=== PATIENT | male | born 1965 | race Caucasian/White ===

== ENCOUNTER 2018-12-05 12:14 | Inpatient (IN) | payer OTHER ==
[2018-12-05] MEDS ORDERED: Aspirin Chewable 81 MG TAB ONE (12:48)
[2018-12-05] MEDS ORDERED: Nitroglycerin 0.4 MG TAB 1 EACH ONE (12:48)
[2018-12-05 12:51] LABS: #Basophils 0.1 thou/uL (0.0-0.2); #Lymphocytes 2.4 thou/uL (1.20-3.40); #Monocytes 0.6 thou/uL (0.11-0.59); #Neutrophils 3.5 thou/uL (1.40-6.50); %Basophils 1.1 % (0.0-1.0); %Eosinophils 0.3 % (0.0-10.0); %Lymphocytes 36.9 % (21.0-51.0); %Neutrophils 52.7 % (42.0-75.0); Hemoglobin 15.4 g/dL (14.0-18.0); Mean Corpuscular HGB CONC 34.8 g/dL (32.0-36.0); Mean Corpuscular Hemoglobin 33.1 pg (27.0-31.0); Mean Corpuscular Volume 95.3 fL (78.0-98.0); Mean Platelet Volume 7.9 fL (7.4-10.4); Platelet Count 249 thou/uL (130-400); Red Blood Cell (RBC) Count 4.65 mill/uL (4.70-6.10); White Blood Cell (WBC) Count 6.6 thou/uL (4.8-10.8)
[2018-12-05 13:26] LABS: ALT (SGPT) 38 U/L (8-55); AST (SGOT) 25 U/L (5-34); Alkaline Phosphatase 101 U/L (40-150); Anion Gap 17 mmol/L (10-20); BUN (Urea Nitrogen) 8 mg/dL (8.4-25.7); Bilirubin, Total 0.7 mg/dL (0.2-1.2); CK (CPK) 158 U/L (30-200); Calc. Creatinine Clearance 0 mL/min (70-130); Calcium 10.4 mg/dL (7.8-10.44); Carbon Dioxide 26 mmol/L (22-29); Chloride 105 mmol/L (98-107); Estimated GFR-MDRD 77; Globulin 2.9 g/dL (2.4-3.5); Glucose 115 mg/dL (70-105); Lipase 18 U/L (8-78); Potassium 3.7 mmol/L (3.5-5.1); Protein, Total 7.9 g/dL (6.0-8.3); Sodium 144 mmol/L (136-145)
--- NOTE | 2018-12-05 13:31 | RAD ---
CHEST ONE VIEW: 12/05/18 HISTORY: Chest pain. COMPARISON: 11/22/10. FINDINGS: Cardiac silhouette is magnified by projection. Pulmonary vasculature is unremarkable. Mediastinum is midline with postoperative changes and aortic calcification. No confluent air space consolidation or evidence of pneumothorax. storekeeper engineering leads overlie the chest. IMPRESSION: Atherosclerosis. No active cardiopulmonary abnormalities are otherwise demonstrated. POS: TPC
[2018-12-05] MEDS ORDERED: Ondansetron PF 4 MG/2 ML Vial ONE (13:38)
[2018-12-05] MEDS ORDERED: Morphine 4 MG/ML VIAL ONE (13:38)
[2018-12-05] MEDS ORDERED: Nitroglycerin 2% Ointment 1 INCH/1 GM Packet ONE (15:57)
[2018-12-05] MEDS ORDERED: Morphine 4 MG/ML VIAL SLOW IVP PRN (15:57)
[2018-12-05] MEDS ORDERED: Morphine 2 MG/ML SYRINGE ONE ×2 (15:57→16:32)
[2018-12-05 16:05] LABS: Troponin I 0.169 ng/mL (< 0.028)
[2018-12-05] MEDS ORDERED: Ondansetron ODT 4 MG TAB PO PRN (16:17)
[2018-12-05] MEDS ORDERED: Labetalol HCl 100 MG/20 ML VIAL SLOW IVP PRN (16:17)
[2018-12-05] MEDS ORDERED: diphenhydrAMINE 25 MG CAP PO PRN (16:17)
[2018-12-05] MEDS ORDERED: Ondansetron PF 4 MG/2 ML Vial IVP PRN (16:17)
[2018-12-05] MEDS ORDERED: Acetaminophen 500 MG TAB PO PRN (16:17)
[2018-12-05] MEDS ORDERED: Morphine 4 MG/ML VIAL SLOW IVP SCH (16:30)
[2018-12-05] MEDS ORDERED: Enoxaparin Sodium 100 MG/ML SYRINGE SC SCH (16:30)
[2018-12-05] MEDS ORDERED: Enoxaparin Sodium 100 MG/ML SYRINGE ONE (16:33)
[2018-12-05] MEDS ORDERED: Lorazepam 0.5 MG TAB PO PRN (16:42)
[2018-12-05] MEDS: Nitroglycerin 0.4 MG TAB (25 Tab Bottle) SL PRN ×4 (17:14→19:55)
--- NOTE | 2018-12-05 17:24 | HP ---
CHIEF COMPLAINT: Chest pain. HISTORY OF PRESENT ILLNESS: Mr. Connolly is a pleasant 53-year-old male with past medical history significant for triple-vessel coronary artery disease, status post 4-vessel CABG approximately 9 years ago; hypertension; hyperlipidemia; who presented to the hospital after suffering an episode of chest pain while he was at work. 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 He had finished laying some asphalt and was about to have lunch when his chest pain began. He describes the chest pain as a "stabbing." He had some associated shortness of breath, dizziness, and nausea. The pain was nonradiating. He also experienced what he calls "shaking." He presented to the emergency department for further workup and treatment. On arrival to the emergency department, initial EKG shows some ST depression in the inferolateral leads. His initial troponin was negative, subsequent troponin was 0.169. He has been given aspirin, nitroglycerin, morphine, and states that his chest pain has improved. He was significantly hypertensive on arrival as well with blood pressure systolic 204, but this has also trended down. The patient states that he does not follow up with Cardiology regularly, and cannot recall who his primary yarder boss is at this point. He does say that he had a stress test about a year ago at this facility, however, I cannot find a record of this in the current records. He states his bypass surgery was performed here by Dr. Martinez. REVIEW OF SYSTEMS: A 12-point review of systems performed and is negative except that stated above. PAST MEDICAL HISTORY: Significant for triple-vessel coronary artery disease as outlined above, hypertension, hyperlipidemia. PAST SURGICAL HISTORY: 4-vessel CABG 9 years ago, prior arthroscopic knee repair, appendectomy. SOCIAL HISTORY: The patient states that he drinks 3 to 4 beers per day. He is a former smoker, but quit 8 years ago. He currently works for the [employer]. FAMILY HISTORY: Positive for coronary artery disease in his mother. ALLERGIES: NO KNOWN DRUG ALLERGIES. HOME MEDICATIONS: 1. Aspirin 325 mg daily. 2. Simvastatin 20 mg p.o. at bedtime. 3. Lisinopril 20 mg daily. PHYSICAL EXAMINATION: VITAL SIGNS: Blood pressure 161/90, pulse 57, respirations 15, O2 saturation is 97% on room air. GENERAL: This is a male, resting in bed, in no acute distress. He does appear anxious. HEENT: Head is atraumatic and normocephalic. Mucous membranes are moist. CV: S1 and S2. Regular rate and rhythm. No appreciable murmurs, rubs, or gallops. LUNGS: Regular respiratory rate and pattern. Clear to auscultation bilaterally. ABDOMEN: Positive bowel sounds. Soft, nontender. EXTREMITIES: No edema. SKIN: Warm and dry. NEUROLOGIC: Cranial nerves 2 through 12 are grossly intact. The patient is nonfocal. LABORATORY DATA: White blood cell count 6.6, hemoglobin 15.4, hematocrit 44.3, platelet count is 249. Sodium 144, potassium 3.7, anion gap is 17, creatinine 1.01, glucose 115, calcium 10.4. Troponin negative and 0.169 respectively. Lipase negative at 18. ASSESSMENT: 1. NSTEMI 2. Coronary artery disease, status post 4-vessel coronary artery bypass graft 9 years ago. 3. Uncontrolled hypertension. 4. Hyperlipidemia. PLAN: At this time, we will treat the patient medically with aspirin, Lovenox, statin, beta-ankit, and VENU inhibitor. We will continue nitroglycerin paste as well as sublingual nitroglycerin and morphine p.r.n. Lipid panel in the morning. We will consult Cardiology. I have explained the likelihood of left heart catheterization as well as some of the risks and benefits if Cardiology proceeds. The patient is currently resting comfortably. Further recommendations based on hospital course. Job ID: [id number] MTDD
[2018-12-05 17:54] VITALS: BMI 28.6
[2018-12-05 19:08] LABS: Troponin I 1.729 ng/mL (< 0.028)
[2018-12-05] MEDS: Metoprolol Tartrate 25 MG TAB PO SCH (20:52)
[2018-12-05] MEDS: Simvastatin 20 MG TAB PO SCH (20:54)
[2018-12-05] MEDS: Famotidine/PF 20 mg/2ml Vial SLOW IVP SCH (20:56)
[2018-12-05] MEDS ORDERED: Morphine 2 MG/ML SYRINGE SLOW IVP PRN (22:08)
[2018-12-05] MEDS: Nitroglycerin 2% Ointment 1 INCH/1 GM Packet TOP SCH (23:45)
[2018-12-06] MEDS: Sodium Chloride 0.9% 1,000 ML IV SCH ×2 (04:08→16:22)
[2018-12-06 05:11] LABS: Anion Gap 12 mmol/L (10-20); BUN (Urea Nitrogen) 10 mg/dL (8.4-25.7); Calc. Creatinine Clearance 144 mL/min (70-130); Calcium 8.6 mg/dL (7.8-10.44); Carbon Dioxide 24 mmol/L (22-29); Cardiac Risk 3.5 (Less than 4.5); Chloride 106 mmol/L (98-107); Cholesterol 139 mg/dl (< 200 Desired); Estimated GFR-MDRD Greater than 90; Glucose 97 mg/dL (70-105); HDL Cholesterol 40 mg/dL (>60 Neg Risk); LDL Cholesterol, Calculated 56 mg/dL; Potassium 3.4 mmol/L (3.5-5.1); Sodium 139 mmol/L (136-145); Triglycerides 213 mg/dL (Less than 150)
[2018-12-06] MEDS: Nitroglycerin 2% Ointment 1 INCH/1 GM Packet TOP SCH ×3 (06:00→21:05)
[2018-12-06 08:36] LABS: Troponin I 25.168 ng/mL (< 0.028)
[2018-12-06] MEDS ORDERED: Enoxaparin Sodium 100 MG/ML SYRINGE SC SCH (09:00)
[2018-12-06] MEDS ORDERED: Communication Order-Pharmacy FS SCH (09:15)
[2018-12-06] MEDS ORDERED: Lidocaine 1% (PF) 30 ML VIAL ONE (09:29)
[2018-12-06] MEDS: Aspirin 81 mg Enteric Coated Tablet PO SCH (09:32)
[2018-12-06] MEDS: Lisinopril 20 MG TAB PO SCH (09:32)
[2018-12-06] MEDS: Famotidine/PF 20 mg/2ml Vial SLOW IVP SCH ×2 (09:32→21:05)
[2018-12-06] MEDS: Metoprolol Tartrate 25 MG TAB PO SCH ×2 (09:36→21:03)
--- NOTE | 2018-12-06 10:59 | CON ---
DATE OF CONSULTATION: 12/06/2018 INDICATION FOR CONSULTATION: This is a 53-year-old gentleman, I saw many years ago. About 10 years ago, he underwent bypass surgery, four-vessel bypass to the left anterior descending with a CAMPBELL and then, three separate vein grafts to the PDA, posterior lateral branch of the right coronary and to the left circumflex. He has been doing relatively well, who was out yesterday working. He works doing road construction, went to his truck to sit down to get some water, then he developed sudden onset of chest pain. It did not resolve. He presented to the emergency room. His pain continued for almost 10 to 12 hours. This has finally been resolved. His pain is now resolved, but his cardiac enzymes are positive for myocardial infarction. Troponin I has gone up to 25. He is actually pain-free at this time, but given the fact, his enzymes continue to increase. In his history of coronary artery disease, he will best be served by undergoing a cardiac catheterization. We will plan for this morning in this patient, who now is relatively stable. PAST MEDICAL HISTORY: Significant for the coronary artery disease and four-vessel bypass, hypertension, and dyslipidemia. He has had arthroscopic knee surgery and appendectomy. For the reminder of his past medical history, refer the notes dictated by the nurse practitioner. SOCIAL HISTORY: Refer the notes dictated by the nurse practitioner. FAMILY HISTORY: Refer the notes dictated by the nurse practitioner. REVIEW OF SYSTEMS: Refer the notes dictated by the nurse practitioner. ALLERGIES: REFER THE NOTES DICTATED BY THE NURSE PRACTITIONER. MEDICATIONS: Refer the notes dictated by the nurse practitioner. PHYSICAL EXAMINATION: GENERAL: Reveals a well-developed, well-nourished woman, in no acute distress. VITAL SIGNS: Blood pressure 120/60, heart rate is in the 60s and is regular, respiratory rate 18, and O2 saturation 96%. HEENT: Shows the head to be normocephalic and atraumatic. Carotid pulses are present. I do not hear any significant bruits. CHEST: Clear to auscultation without any rales, rhonchi, or wheezing. CARDIOVASCULAR: Reveals a regular rate and rhythm. No significant murmurs, heaves, thrills, bruits, or rubs. ABDOMEN: Soft and nontender. Positive bowel sounds are present. EXTREMITIES: Showed no clubbing, cyanosis, or edema. Femoral pulses are present. NEUROLOGIC: The patient is fully intact without any gross focal motor deficits. LABORATORY DATA: As noted above, the troponin I has increased up to 25, originally on admission, the troponin I was less than 0.1, increased to 0.16 and 1.7, now is up to 25. His creatinine is 0.82 and potassium is 3.4. His hemoglobin is 15.4, WBC of 6.6, and platelet count of 249,000. PLAN: At this time, we will continue to as planned cardiac catheterization. I have discussed the procedure and risks with him for a cardiac catheterization to include bleeding, infection, possible myocardial infarction, CVA, renal insufficiency, allergic contrast reaction, and the possibility of . He understands and agrees to proceed. We will plan for cardiac catheterization this morning. Job ID: [id number]
[2018-12-06] MEDS ORDERED: TICAGRELOR 90 MG TABLET ONE (11:30)
[2018-12-06] MEDS ORDERED: Aggrastat 12.5 MG/250 ML 250 ML ONE (11:30)
[2018-12-06] MEDS ORDERED: Sodium Chloride 0.9% 200 ML IV PRN (12:16)
[2018-12-06] MEDS ORDERED: Acetaminophen/Codeine 30-300mg Tablet PO PRN ×2 (12:16)
[2018-12-06] MEDS ORDERED: Aggrastat 12.5 MG/250 ML 250 ML IVPB SCH (12:16)
[2018-12-06] MEDS ORDERED: Nitroglycerin 0.4 MG TAB (25 Tab Bottle) SL PRN (12:16)
[2018-12-06] MEDS ORDERED: Iopamidol 370 76% 100 ML VIAL ONE (15:09)
--- NOTE | 2018-12-06 17:31 | CON ---
DATE OF CONSULTATION: PRIMARY CARE DOCTOR: I believe the patient goes to the [facility] in [facility]. PRIMARY CUSTODIAL FOREMAN: Dr. Meme Lemons. REASON FOR CARDIOLOGY CONSULT: Chest pain and history of CABG x4 in 2009. HISTORY OF PRESENT ILLNESS: Mr. Connolly is a 53-year-old male with a significant history of coronary artery disease with status post CABG x4 in 2009, hypertension, hyperlipidemia, who presents to emergency department after he has heaviness and massive pain to the mediastinal area as like the basketball hit his chest yesterday around noontime associated with dizziness and shortness of breath and shakiness in the body. All the symptom improved except that the pain to the mediastinal area last until last night. At this moment during the initial Cardiology consult, the patient denied any chest pain, heaviness, tightness, or any other cardiac complaints at this moment. He worked for the [facility] and he work outside every day. He was very active at work without any cardiac complaints until yesterday and his troponins have shown the troponin up to 25.168 at this moment. The patient had a CABG x4 in 2009 with reverse SVG to OM, reverse SVG to PDA, CAMPBELL to LAD, and reverse SVG to PL branch and an LAD to D2 bifurcation, which was very small, heavily diseased artery and it should not be approached. A stress test done in August 2016 showed small size of scar in anterior wall and moderate size of scar in apical wall, but no evidence of reverse ischemia with EF 56%. PAST MEDICAL HISTORY: Hypertension, hyperlipidemia, and CAD. PAST SURGICAL HISTORY: 4-vessel CABG in 2009 and right knee repair and appendectomy in 2014. FAMILY HISTORY: No family history. The patient's mother has a medical history of CAD, hypertension, and pacemaker placement. The patient's father has a medical history of hypertension. SOCIAL HISTORY: He is . He lives with himself, but he has a good supportive neighbor. He drinks 3 to 4 beers per day and usually 12 to 18 beers the weekend several times per month. He is an ex-smoker. He quit in 2009. He does not do regular exercise, but he walks really active at work. REVIEW OF SYSTEMS: 12-point review of systems is negative unless otherwise mentioned in the HPI. The patient had a torn of the rotator cuff on the left shoulder, now he is going to see the physical therapist and possible steroid shot to do that side. ALLERGIES: THE PATIENT IS ALLERGIC TO BETA-POLLY, WHICH MAKES HIM FEEL THE PATIENT WEAK AND ABDOMEN UPSET. HOME MEDICATIONS: 1. Aspirin 325 mg once a day. 2. Simvastatin 20 mg once a day. 3. Lisinopril 20 mg once a day. 4. Multivitamin once a day. 5. CoQ10 of 100 mg once a day. PHYSICAL EXAMINATION: VITAL SIGNS: Blood pressure 120/60; heart rate 60, sinus rhythm; temperature 98.2, respiratory rate 18, O2 saturation 96% with room air. GENERAL: The patient is alert and oriented x4, not in acute distress. HEENT: Normocephalic, atraumatic. Eyes; extraocular muscle movement intact. ENT and mouth; oral and nasal mucosa moist without lesion. NECK: Supple. Normal range of motion. No JVD. RESPIRATORY: Clear to auscultate bilaterally. No wheezing, rales, or rhonchi noted. CARDIOVASCULAR: Regular rate and rhythm. Normal S1 and S2. There is no S3 or S4. No significant murmur, hives, or thrill noted. 2+ pulses in the bilateral upper and lower extremities. Carotid pulses are present without bruit or thrill noted. No edema in the lower extremities. ABDOMEN: Soft, nontender. No masses palpitated. Bowel sounds are present. SKIN: Warm and dry. No erythema, lesion, or rash noted. MUSCULOSKELETAL: The patient is able to move all extremities. PSYCHIATRIC: The patient's mood is appropriate. NEUROLOGIC: The patient is alert and oriented x4. Nonfocal. LABORATORY DATA: WBC 6.6, hemoglobin 15.4, hematocrit 44.3, platelets 249. Sodium 139, potassium 3.4, BUN 10, creatinine 0.82, glucose is 97, calcium 8.6, AST 25, ALT 38. Troponin highest at 25.168. Cholesterol 139, triglycerides 213, HDL 40, LDL 56. IMAGING STUDIES: Chest x-ray showed no acute cardiopulmonary process noted. ASSESSMENT AND PLAN: 1. Chest pain with elevated troponin. The patient has planned to undergo cardiac catheterization or if Dr. Lemons has already consulted this patient and planned to undergo cardiac catheterization today at 10:30 a.m. The patient denied any question or concern about procedure or risk of the procedure. 2. Hypertension. The patient's blood pressure is stable at this moment with current medication. 3. Hyperlipidemia. The patient's cholesterol level is very well controlled with simvastatin. Thank you very much for allowing the Cardiology Service to participate in the care of patient. We will follow along the patient's care team and make further recommendations as appropriate. Job ID: [id number]
[2018-12-06 18:08] LABS: Hemoglobin 13.8 g/dL (14.0-18.0); Platelet Count 197 thou/uL (130-400)
--- NOTE | 2018-12-06 21:03 | PDOC.HOSPP ---
- Subjective Subjective: Doing well post-cath. No further chest pain. - Objective Vital Signs & Weight: Vital Signs (12 hours) Temp Pulse Resp BP BP Pulse Ox 12/06/18 18:10 98.1 F 66 18 133/61 97 12/06/18 16:00 98.0 F 67 18 119/58 L 97 Weight Weight 218 lb 4.8 oz I&O: 12/05/18 12/06/18 12/07/18 06:59 06:59 06:59 Intake Total 240 1375 Balance 240 1375 Result Diagrams: 12/06/18 17:58 12/06/18 04:03 Hospitalist ROS - Medication Medications: Active Medications Generic Name Dose Route Start Last Admin Trade Name Freq PRN Reason Stop Dose Admin Aspirin 81 mg 12/06/18 09:00 12/06/18 09:32 Ecotrin PO Not Given DAILY THERESE Famotidine 20 mg 12/05/18 21:00 12/06/18 09:32 Pepcid SLOW IVP Not Given BID [facility] Sodium Chloride 1,000 mls @ 75 mls/hr 12/06/18 03:00 12/06/18 16:22 Normal Saline 0.9% IV 1,000 mls .[id number] THERESE Administration Lisinopril 20 mg 12/06/18 09:00 12/06/18 09:32 Zestril PO Not Given DAILY THERESE Metoprolol Tartrate 12.5 mg 12/05/18 21:00 12/06/18 09:36 Lopressor PO 12.5 mg BID THERESE Administration Nitroglycerin 0.5 inch 12/05/18 22:00 12/06/18 13:09 Nitro-Bid 2% Ointment TOP Not Given Q8HR THERESE Nitroglycerin 0.4 mg 12/05/18 16:17 12/05/18 19:55 Nitrostat SL 1 tab Q5MIN PRN Administration Chest Pain Simvastatin 20 mg 12/05/18 21:00 12/05/18 20:54 Zocor PO 20 mg HS THERESE Administration - Exam General Appearance: NAD, awake alert Neck: supple, symmetric, no JVD, no thyromegaly, no lymphadenopathy, no carotid bruit Heart: RRR, no murmur, no gallops, no rubs, normal peripheral pulses Respiratory: CTAB, no wheezes, no rales, no ronchi, normal chest expansion, no tachypnea, normal percussion Gastrointestinal: soft, non-tender, non-distended, normal bowel sounds, no palpable masses, no hepatomegaly, no splenomegaly, no bruit Extremities: no cyanosis, no clubbing, no edema Psychiatric: normal affect, normal behavior, A&O x 3 Hosp A/P (1) NSTEMI (non-ST elevated myocardial infarction) Code(s): I21.4 - NON-ST ELEVATION (NSTEMI) MYOCARDIAL INFARCTION Status: Acute (2) CAD (coronary artery disease) Code(s): I25.10 - ATHSCL HEART DISEASE OF [place] CORONARY ARTERY W/O ANG PCTRS Status: Acute (3) HTN (hypertension) Code(s): I10 - ESSENTIAL (PRIMARY) HYPERTENSION Status: Acute (4) HLD (hyperlipidemia) Code(s): E78.5 - HYPERLIPIDEMIA, UNSPECIFIED Status: Acute - Plan Had thrombus in OM branch that will be treated medically. Discussed with Dr. Lemons. Aggrastat gtt and Brilinta. Continue antihypertensives and statin.
[2018-12-06] MEDS: Simvastatin 20 MG TAB PO SCH (21:04)
[2018-12-06] MEDS: TICAGRELOR 90 MG TABLET PO SCH (21:04)
[2018-12-07] MEDS: Nitroglycerin 2% Ointment 1 INCH/1 GM Packet TOP SCH ×2 (05:50→15:19)
--- NOTE | 2018-12-07 08:46 | PDOC.CPN ---
- Subjective Date: 12/07/18 Time: 08:44 Interval history: The pt seen and examined. No overnight events. No cardiac complaints. - Objective Allergies/Adverse Reactions: Allergies Allergy/AdvReac Type Severity Reaction Status Date / Time No Known Allergies Allergy Verified 12/05/18 18:04 Visit Medications: Current Medications Acetaminophen (Tylenol) 1,000 mg PO Q6H PRN PRN Reason: Mild Pain (1-3) Acetaminophen/Codeine Phosphate (Tylenol #3) 1 tab PO Q4H PRN PRN Reason: Mild Pain (1-3) Acetaminophen/Codeine Phosphate (Tylenol #3) 2 tab PO Q4H PRN PRN Reason: Moderate Pain (4-6) Aspirin (Ecotrin) 81 mg PO DAILY [facility] Last Admin: 12/06/18 09:32 Dose: Not Given Diphenhydramine HCl (Benadryl) 25 mg PO Q4H PRN PRN Reason: Itching & Insomnia Famotidine (Pepcid) 20 mg SLOW IVP BID [facility] Last Admin: 12/06/18 21:05 Dose: 20 mg Sodium Chloride (Normal Saline 0.9%) 1,000 mls @ 75 mls/hr IV .[id number] [facility] Last Admin: 12/06/18 16:22 Dose: 1,000 mls Tirofiban/Sodium Chloride (Aggrastat 12.5 Mg/250 Ml) 250 mls @ 0 mls/hr IVPB INF [facility]; Protocol Last Admin: 12/06/18 23:03 Dose: 250 mls Labetalol HCl (Normodyne) 20 mg SLOW IVP Q4H PRN PRN Reason: SBP > 180 and HR >/= 70 Lisinopril (Zestril) 20 mg PO DAILY [facility] Last Admin: 12/06/18 09:32 Dose: Not Given Lorazepam (Ativan) 0.5 mg PO Q4H PRN PRN Reason: Anxiety Metoprolol Tartrate (Lopressor) 12.5 mg PO BID [facility] Last Admin: 12/06/18 21:03 Dose: 12.5 mg Morphine Sulfate (Morphine) 2 mg SLOW IVP Q2HR PRN PRN Reason: Chest Pain Nitroglycerin (Nitro-Bid 2% Ointment) 0.5 inch TOP Q8HR [facility] Last Admin: 12/07/18 05:50 Dose: 0.5 inch Nitroglycerin (Nitrostat) 0.4 mg SL Q5MIN PRN PRN Reason: Chest Pain Last Admin: 12/05/18 19:55 Dose: 1 tab Nitroglycerin (Nitrostat) 0.4 mg SL Q5MIN PRN PRN Reason: Chest Pain Ondansetron HCl (Zofran Odt) 4 mg PO Q6H PRN PRN Reason: Nausea/Vomiting Ondansetron HCl (Zofran) 4 mg IVP Q6H PRN PRN Reason: Nausea/Vomiting Simvastatin (Zocor) 20 mg PO HS [facility] Last Admin: 12/06/18 21:04 Dose: 20 mg Ticagrelor (Brilinta) 90 mg PO BID [facility] Last Admin: 12/06/18 21:04 Dose: 90 mg Vital Signs & Weight: Vital Signs Temp Pulse Resp BP BP Pulse Ox 12/07/18 08:21 98.4 F 87 18 137/71 95 12/07/18 05:49 98.6 F 64 12 129/67 95 12/07/18 01:55 61 14 119/60 97 Weight 206 lb 8 oz - Physical Exam Neck: supple neck, no JVD/HJR Cardiac: regular rate and rhythm, S1/S2 Lungs: clear to auscultation Neuro: cranial nerve 2-12 intact Abdomen: unremarkable Skin: clear, other (the Rt Fem site: No bleeding, hematoma,) Musculoskeletal: normal range of motion - Labs Result Diagrams: 12/07/18 08:52 12/07/18 08:52 Troponin/CKMB Troponin I 25.168 ng/mL (< 0.028) H* 12/06/18 04:03 - Telemetry Sinus rhythms and dysrhythmias: sinus rhythm - Assessment/Plan Assessment/Plan: 1. NSTEMI with thrombus in SVG-OM - stable with aggrastat and Brilinta; On bblocker and Lisinopril; On Statin; will recheck Trop and 12 lead ECG this AM 2. CAD with hx of CABG x4 in 2009 3. HTN - stable with current med 4. HLD - on Simvastatin MAR reviewed * [facility] on 12/06/2018 with EF 55-60%, severe hypokinesis/dyskinesis at distal anterior-lateral wall, thrombus in SVG-OM with small distal vessel; patent SVG- PDA, patent CAMPBELL-LAD with small LAD distal to anastamosis <addendum> * Stop Aggrastat * From Cardiac standpoint, the pt can be d/judith home with stable VS this afternoon. * The coupon for Brilinta will be given to the pt. * The pt will f/u with Dr Lemons office within 2 wks. * The pt sould be off work for 1 wk. pt. seen and eval. by me. I agree with the A/P by [facility]. See RN ANGIOGRAPHY in the office in 1 week prior to returning to work. He denies cardiac complaints. Tolerating low dose betablockers. T.I. decreased. Okay to d/c to home later today. He will need a new Rx for NTG. chst clear. RRR.
[2018-12-07] MEDS: Famotidine/PF 20 mg/2ml Vial SLOW IVP SCH (09:00)
[2018-12-07] MEDS: Lisinopril 20 MG TAB PO SCH (09:00)
[2018-12-07] MEDS: TICAGRELOR 90 MG TABLET PO SCH (09:00)
[2018-12-07] MEDS: Aspirin 81 mg Enteric Coated Tablet PO SCH (09:00)
[2018-12-07] MEDS: Metoprolol Tartrate 25 MG TAB PO SCH (09:00)
[2018-12-07 09:09] LABS: Hemoglobin 13.4 g/dL (14.0-18.0); Platelet Count 187 thou/uL (130-400)
[2018-12-07] MEDS: Sodium Chloride 0.9% 1,000 ML IV SCH (09:13)
[2018-12-07 09:30] LABS: Troponin I 8.361 ng/mL (< 0.028)
[2018-12-07 09:36] LABS: Anion Gap 13 mmol/L (10-20); BUN (Urea Nitrogen) 7 mg/dL (8.4-25.7); Calc. Creatinine Clearance 129 mL/min (70-130); Calcium 8.9 mg/dL (7.8-10.44); Carbon Dioxide 24 mmol/L (22-29); Chloride 106 mmol/L (98-107); Estimated GFR-MDRD Greater than 90; Glucose 128 mg/dL (70-105); Potassium 3.7 mmol/L (3.5-5.1); Sodium 139 mmol/L (136-145)
[2018-12-07 15:14] VITALS: BP 119/58; TEMP 97.6
--- NOTE | 2018-12-09 04:10 | DIS ---
DATE OF ADMISSION: 12/05/2018 DATE OF DISCHARGE: 12/07/2018 DISCHARGE DIAGNOSES: 1. Non ST-elevation myocardial infarction. 2. Thrombus of saphenous vein graft to OM1. 3. Coronary artery disease. 4. Hypertension. 5. Hyperlipidemia. HISTORY OF PRESENT ILLNESS: This patient is a 53-year-old male who presented to the emergency department with the complaint of chest pain. He described as a stabbing sensation. His initial troponin was initially negative, subsequent 0.169. His EKG did not show evidence of ischemia. HOSPITAL COURSE: The patient was admitted with probable NSTEMI. Initially, subsequently his troponins continued to climb and peaked around 25. With that, the patient was maintained on Lovenox and aspirin. He was subsequently seen in consultation by Cardiology, who then took the patient to the label machine operator where he was found to have the occlusion of the saphenous vein graft to the obtuse marginal branch with thrombus occlusion. It was felt that this was unamenable for intervention and the patient was subsequently taken back on an Aggrastat drip with Brilinta. Recheck of the patient's troponin showed that it had come down to 8. He remained asymptomatic and he remained on the Aggrastat drip for 24 hours. He was feeling well. He was ambulating without difficulty and ultimately felt to be stable for discharge to home. PHYSICAL EXAMINATION: On the day of discharge, VITAL SIGNS: Temperature was 97.6, pulse 63, respirations 18, O2 saturation 95% on room air, BP 119/58. GENERAL: He was awake and alert. HEART: Regular rate and rhythm. LUNGS: Clear bilaterally. ABDOMEN: Soft, nontender, and nondistended. Positive bowel sounds. No masses. No organomegaly. EXTREMITIES: No cyanosis, clubbing, or edema. DISPOSITION: The patient is discharged to home. MEDICATIONS: He will be on, 1. Metoprolol 12.5 mg b.i.d. 2. Brilinta 90 mg b.i.d. 3. He will have p.r.n. sublingual nitroglycerin. 4. He will continue on simvastatin 20 mg at bedtime. 5. Multivitamin 1 p.o. daily. 6. Aspirin 325 daily. 7. CoQ10 one p.o. daily. 8. Lisinopril 20 mg daily. DIET: He will be on a heart healthy diet. ACTIVITY: As tolerated, although he is to stay off work for 1 week. FOLLOWUP: He is to follow up with Dr. Lemons on 12/21. He will see the [facility] on 12/12, and he will follow up with cardiac rehab. The patient can return to the hospital should he have any problems prior to the time of his followup. TIME SPENT: Total time in discharge planning including greater than 50% spent [id number] time with the patient was 31 minutes. Job ID: [id number]
== END 2018-12-07 15:39 | disposition home or self-care (01) | DRG 282 ==
LOC: ERS 12:14 → OBSVTOIN 14:09 → ERHOLD 14:09 → 2SW 17:47 → 2NO 12-06 18:11
PROVIDERS: ADMIT Family Medicine; ATTEND Family Medicine
PROC: 4A023N7 Measurement of Cardiac Sampling and Pressure, Left Heart, Percutaneous Approach (ICD-10-PCS; principal; 2018-12-06)
PROC: B2111ZZ Fluoroscopy of Multiple Coronary Arteries using Low Osmolar Contrast (ICD-10-PCS; 2018-12-06)
DX: I21.4 Non-ST elevation (NSTEMI) myocardial infarction (principal); I25.10 Atherosclerotic heart disease of native coronary artery without angina pectoris; I10 Essential (primary) hypertension; E78.5 Hyperlipidemia, unspecified; Z95.1 Presence of aortocoronary bypass graft; Z90.49 Acquired absence of other specified parts of digestive tract; Z87.891 Personal history of nicotine dependence; Z79.82 Long term (current) use of aspirin
CPT/HCPCS: 36415; 71045; 80048; 80053; 80061; 82550; 83690; 84484; 85014; 85018; 85025; 85049; 93005; 93010; 93458; 93798; 96372; 96374; 96375; 96376; J1644; J1650; J2001; J2270; J2405; J3246; Q9967; S0028

== ENCOUNTER 2023-02-23 15:04 | Outpatient (CLI) | payer BC | END 2023-02-23 15:05 | disposition home or self-care (01) | LOC: BICRAD 15:04 | PROVIDERS: ATTEND Physician Assistant | DX: M79.671 Pain in right foot (principal); M19.071 Primary osteoarthritis, right ankle and foot ==